=== PATIENT | male | born 1950 | race Caucasian/White ===

== ENCOUNTER 2023-12-18 18:50 | Inpatient (IN) | payer OTHER, MEDICARE ==
[~2023-12-18] VITALS: Ht 172.7 cm; Wt 81.9 kg
[2023-12-18] MEDS: pantoprazole 40 MG vial IV ONE (19:43)
[2023-12-18 19:44] LABS: BASOPHILS % (AUTO) 0.8 % (0-1); EOSINOPHILS # (AUTO) 0.2 X10'3 (0-0.9); EOSINOPHILS % (AUTO) 2.9 % (0-6); HEMATOCRIT 24.7 % (42.0-52.0); LYMPHOCYTES # (AUTO) 1.3 X10'3 (1.1-4.8); LYMPHOCYTES % (AUTO) 22.9 % (21-51); MEAN CORPUSCULAR HEMOGLOBIN 28.9 PG (27.0-31.0); MEAN CORPUSCULAR HGB CONC 32.4 g/dL (33.0-36.5); MEAN PLATELET VOLUME 8.4 FL (7.4-10.4); MONOCYTES # (AUTO) 0.5 X10'3 (0-0.9); MONOCYTES % (AUTO) 9.3 % (2-12); NEUTROPHILS # (AUTO) 3.8 X10'3 (1.8-7.7); NEUTROPHILS % (AUTO) 64.1 % (42-75); PLATELET COUNT 285 X10'3 (140-440); RED BLOOD COUNT 2.78 X10'6 (4.70-6.10); RED CELL DISTRIBUTION WIDTH 17.6 % (11.5-14.5); WHITE BLOOD COUNT 5.9 X10'3 (4.5-11.0)
[2023-12-18] MEDS ORDERED: ROPI2TAB29 PO (19:51)
[2023-12-18 19:53] LABS: ALBUMIN 2.3 G/DL (3.4-5.0); ANION GAP 8 (8-16); BLOOD UREA NITROGEN 37 MG/DL (7-18); BUN/CREATININE RATIO 63.8 (10.0-20.0); CALCIUM 8.3 MG/DL (8.5-10.1); CHLORIDE 110 MMOL/L (99-107); CREATININE 0.58 MG/DL (0.60-1.10); GLUCOSE 94 MG/DL (70-104); LIPASE 41 U/L (16-77); MAGNESIUM 1.9 MG/DL (1.5-2.4); POTASSIUM 3.8 MMOL/L (3.5-5.1); SODIUM 143 MMOL/L (135-145); TOTAL CARBON DIOXIDE 25.3 MMOL/L (24-32); eCRCL 110 ML/MIN; eGFR > 90 ML/MIN
[2023-12-18 19:56] LABS: APTT 23 SECONDS (22-32); INR 1.1 INR; PROTHROMBIN TIME 11.4 SECONDS (9.0-12.0)
[2023-12-18] MEDS ORDERED: magnesium hydroxide 30ml (MOM) UD suspension PO PRN (21:20)
[2023-12-18] MEDS ORDERED: acetaminophen 325mg tablet PO PRN (21:20)
[2023-12-18] MEDS ORDERED: potassium Cl 40MEQ/1/2NS 520ml 520 ML IV PRN (21:20)
[2023-12-18] MEDS: normal saline 1000ml 1,000 ML IV SCH (21:20)
[2023-12-18] MEDS ORDERED: mag hydrox/Alum hydrox/simeth 30ml oral suspension PO PRN (21:20)
[2023-12-18] MEDS ORDERED: potassium Cl 20 mEq SR tablet PO PRN (21:20)
[2023-12-18] MEDS ORDERED: magnesium sulf-water 2g/50mL 50 ML IV PRN (21:20)
[2023-12-18] MEDS ORDERED: ondansetron/PF 4mg/2ml inj IV PRN (21:20)
[2023-12-18] MEDS ORDERED: magnesium sulf-water 4G/100mL 100 ML IV PRN (21:20)
[2023-12-18] MEDS ORDERED: magnesium Cl slow-release 64mg tablet PO PRN (21:20)
[2023-12-18] MEDS: enoxaparin 40mg/0.4ml syringe SUBCUT SCH (21:35)
[2023-12-18 21:45] LABS: HEMOGLOBIN A1C 5.4 % (4.5-6.2)
[2023-12-18] MEDS: HYDROmorphone inj. 0.5 MG/0.5 ML DISP.SYRIN IV PRN (21:47)
[2023-12-18 21:49] LABS: % IRON SATURATION 37 % (11-46); IRON 56 UG/DL (53-167); TOTAL IRON BINDING CAPACITY 150 UG/DL (259-388)
[2023-12-18 21:59] LABS: D-DIMER 1.36 MG/L FEU (0-0.50)
[2023-12-18 22:01] LABS: FERRITIN 251 NG/ML (26-388); PRO BRAIN NATRIURETIC PEPTIDE 985 PG/ML (0-125)
[2023-12-18] MEDS: bisacodyl 10mg suppository rectal RC STA (22:08)
[2023-12-18] MEDS: HEPARIN DRIP DVT/PE -**PHARMACIST TO DOSE IV ONE (22:20)
[2023-12-18] MEDS: dextrose 5%-1/2 normal saline 1,000 ML IV ONE (22:31)
[2023-12-18] MEDS: pantoprazole 40MG/NS 100ML BAG 100 ML IV SCH (22:31)
[2023-12-18 23:45] LABS: BASOPHILS # (AUTO) 0.1 X10'3 (0-0.2); EOSINOPHILS # (AUTO) 0.2 X10'3 (0-0.9); EOSINOPHILS % (AUTO) 4.6 % (0-6); HEMOGLOBIN 7.6 g/dl (14.0-17.9); LYMPHOCYTES # (AUTO) 1.3 X10'3 (1.1-4.8); LYMPHOCYTES % (AUTO) 25.1 % (21-51); MEAN CORPUSCULAR HEMOGLOBIN 29.2 PG (27.0-31.0); MEAN CORPUSCULAR HGB CONC 33.1 g/dL (33.0-36.5); MEAN CORPUSCULAR VOLUME 88.2 FL (78-98); MEAN PLATELET VOLUME 8.2 FL (7.4-10.4); MONOCYTES # (AUTO) 0.5 X10'3 (0-0.9); MONOCYTES % (AUTO) 9.7 % (2-12); NEUTROPHILS # (AUTO) 3.1 X10'3 (1.8-7.7); NEUTROPHILS % (AUTO) 59.6 % (42-75); PLATELET COUNT 272 X10'3 (140-440); RED CELL DISTRIBUTION WIDTH 17.4 % (11.5-14.5); WHITE BLOOD COUNT 5.3 X10'3 (4.5-11.0)
[2023-12-18] MEDS: MESSAGE TO NURSING IV ONE (23:51)
[2023-12-18] MEDS: COMMUNICATION ORDER 1 EA MISC MC ONE (23:51)
[2023-12-18 23:56] LABS: APTT 25 SECONDS (22-32); INR 1.1 INR; PROTHROMBIN TIME 11.6 SECONDS (9.0-12.0)
[2023-12-18] MEDS: heparin 25,000 UNIT/250ml bag 250 ML IV PRN (23:56)
[2023-12-19] MEDS: K and/or MAG REPLACEMENT MC SCH (03:00)
[2023-12-19] MEDS: docusate sod 100mg capsule PO SCH (08:00)
[2023-12-19 08:28] LABS: BASOPHILS # (AUTO) 0.1 X10'3 (0-0.2); BASOPHILS % (AUTO) 1.1 % (0-1); EOSINOPHILS # (AUTO) 0.3 X10'3 (0-0.9); EOSINOPHILS % (AUTO) 5.5 % (0-6); HEMATOCRIT 22.5 % (42.0-52.0); HEMOGLOBIN 7.3 g/dl (14.0-17.9); LYMPHOCYTES % (AUTO) 21.1 % (21-51); MEAN CORPUSCULAR HEMOGLOBIN 28.9 PG (27.0-31.0); MEAN CORPUSCULAR HGB CONC 32.5 g/dL (33.0-36.5); MEAN CORPUSCULAR VOLUME 88.9 FL (78-98); MEAN PLATELET VOLUME 8.5 FL (7.4-10.4); MONOCYTES # (AUTO) 0.4 X10'3 (0-0.9); MONOCYTES % (AUTO) 7.9 % (2-12); NEUTROPHILS % (AUTO) 64.4 % (42-75); PLATELET COUNT 250 X10'3 (140-440); RED BLOOD COUNT 2.53 X10'6 (4.70-6.10); RED CELL DISTRIBUTION WIDTH 17.5 % (11.5-14.5); WHITE BLOOD COUNT 4.6 X10'3 (4.5-11.0)
[2023-12-19 09:15] LABS: ALANINE AMINOTRANSFERASE 34 U/L (12-78); ALBUMIN 2.2 G/DL (3.4-5.0); ALBUMIN/GLOBULIN RATIO 0.8 (1.1-1.5); ALKALINE PHOSPHATASE 259 IU/L (46-116); ANION GAP 6 (8-16); ASPARTATE AMINO TRANSFERASE 17 U/L (10-37); BILIRUBIN,TOTAL 0.3 MG/DL (0.1-1.0); BLOOD UREA NITROGEN 25 MG/DL (7-18); BUN/CREATININE RATIO 48.1 (10.0-20.0); CALCIUM 7.9 MG/DL (8.5-10.1); CHLORIDE 108 MMOL/L (99-107); CHOL/HDL RATIO 2.9 (0.00-4.99); CHOLESTEROL 92 MG/DL (0-200); CREATININE 0.52 MG/DL (0.60-1.10); GLUCOSE 109 MG/DL (70-104); HDL CHOLESTEROL 32 MG/DL (35-60); LDL CHOLESTEROL 45 MG/DL (50-100); MAGNESIUM 1.8 MG/DL (1.5-2.4); POTASSIUM 3.2 MMOL/L (3.5-5.1); SODIUM 138 MMOL/L (135-145); TOTAL CARBON DIOXIDE 23.9 MMOL/L (24-32); TRIGLYCERIDES 124 MG/DL (20-135); eCRCL 122 ML/MIN; eGFR > 90 ML/MIN
[2023-12-19] MEDS: iron sucrose complex injection 200 MG in normal saline 100ml IV soln 100 ML IV SCH (11:56)
[2023-12-19] MEDS: heparin 10,000 units/1 ML INJ IV PRN (13:52)
[2023-12-19] MEDS: MESSAGE TO NURSING IV ONE ×2 (14:02→21:05)
[2023-12-19] MEDS: potassium Cl 20 mEq SR tablet PO PRN (14:52)
[2023-12-19 15:13] LABS: OCCULT BLOOD STOOL POSITIVE (Neg)
[2023-12-19 16:08] VITALS: BP 103/65; PULSE 86; RESP 18; TEMP 97.8; O2SAT 97
[2023-12-19 18:34] VITALS: RESP 17; O2SAT 97
[2023-12-19 19:00] VITALS: BP 113/59; PULSE 95; RESP 18; TEMP 97.8; O2SAT 100
[2023-12-19 19:18] VITALS: BP 113/59; PULSE 95; RESP 18; TEMP 97.8; O2SAT 100
[2023-12-19] MEDS ORDERED: ASCO-134 PO (19:44)
[2023-12-19] MEDS ORDERED: ASPI81TA52 PO (19:45)
[2023-12-19] MEDS ORDERED: ATOR-429 PO (19:46)
[2023-12-19] MEDS ORDERED: FENT1PAT7 TD (19:49)
[2023-12-19 20:00] VITALS: RESP 18; O2SAT 97
[2023-12-19] MEDS ORDERED: PREG150C PO (20:03)
[2023-12-19] MEDS ORDERED: SENN-360 PO (20:06)
[2023-12-19] MEDS ORDERED: FLO0.4C PO (20:07)
[2023-12-19] MEDS ORDERED: VITA1CAP PO (20:09)
[2023-12-19] MEDS ORDERED: POLY119P2 PO (20:11)
[2023-12-19] MEDS ORDERED: RIVA10TA PO (20:41)
[2023-12-19 22:00] VITALS: BP 142/71; PULSE 91; RESP 18; TEMP 97.2; O2SAT 97
[2023-12-19] MEDS ORDERED: ROPI0.2544 PO (23:28)
[2023-12-19] MEDS ORDERED: METO-539 PO (23:31)
[2023-12-19] MEDS ORDERED: METH-798 PO (23:32)
[2023-12-19] MEDS ORDERED: LACT10PA5 PO (23:33)
[2023-12-19] MEDS ORDERED: CRAN450T4 PO (23:34)
[2023-12-19] MEDS ORDERED: BISA-155 PO (23:36)
[2023-12-19] MEDS ORDERED: ACET-890 PO (23:39)
[2023-12-19] MEDS ORDERED: DIPH25TA25 PO (23:41)
[2023-12-19] MEDS ORDERED: DULO-31 PO (23:42)
[2023-12-19] MEDS ORDERED: FERR325T28 PO (23:43)
[2023-12-19] MEDS ORDERED: FOLI0.4T6 PO (23:45)
[2023-12-19] MEDS ORDERED: GUAI600T45 PO (23:46)
[2023-12-19] MEDS ORDERED: HYDR8TAB16 PO (23:51)
[2023-12-19] MEDS ORDERED: PANT-47 PO (23:53)
[2023-12-19] MEDS ORDERED: GLYC-147 RC (23:54)
[2023-12-19] MEDS ORDERED: ALBU8HFA INH (23:57)
[2023-12-20] VITALS (23 sets, daily range): BP systolic 102–141; BP diastolic 53–96; PULSE 65–93; RESP 10–19; TEMP 97.3–98.6; O2SAT 95–100
[2023-12-20] MEDS ORDERED: bisacodyl 5mg tablet.DR PO SCH
[2023-12-20] MEDS ORDERED: lactulose 20gm/30ml cup PO PRN (01:40)
[2023-12-20] MEDS: vitamin B comp w/Vit. C tab 1 TAB TABLET PO SCH (07:56)
[2023-12-20] MEDS: atorvastatin 20mg tablet PO SCH (07:56)
[2023-12-20] MEDS: tamsulosin 0.4mg capsule PO SCH (07:57)
[2023-12-20] MEDS: pregabalin 75mg capsule PO SCH (07:57)
[2023-12-20] MEDS: duloxetine 30mg CAPSULE.DR PO SCH (07:58)
[2023-12-20] MEDS: ROPINIRole 1mg tablet PO SCH (07:58)
[2023-12-20] MEDS: folic acid 0.4mg tablet PO SCH (07:58)
[2023-12-20] MEDS: metoprolol succinate 25mg (24-HOUR) SR. Tablet PO SCH (07:58)
[2023-12-20] MEDS: ferrous sulfate 325mg tablet PO SCH (07:58)
[2023-12-20] MEDS: ascorbic acid 500mg tablet PO SCH (07:59)
[2023-12-20] MEDS: pantoprazole 40mg Tablet.DR PO SCH (07:59)
[2023-12-20] MEDS: ROPINIRole 0.25mg tablet PO SCH (07:59)
[2023-12-20] MEDS: polyethylene glycol 3350 17gm powd pack PO SCH (08:00)
[2023-12-20] MEDS ORDERED: METHOCARBAMOL PO SCH (08:00)
[2023-12-20] MEDS: sennosides 8.6mg tablet PO SCH (08:00)
[2023-12-20] MEDS ORDERED: non-formulary drug (Cranberry Extract (Cranberry) 2 TAB) PO SCH (08:00)
[2023-12-20] MEDS ORDERED: rivaroxaban 10mg tablet PO SCH (08:00)
[2023-12-20] MEDS: HYDROmorphone/PF 0.2 MG/ML SYRINGE IV PRN (08:01)
[2023-12-20 09:59] LABS: BASOPHILS % (AUTO) 0.9 % (0-1); EOSINOPHILS # (AUTO) 0.2 X10'3 (0-0.9); EOSINOPHILS % (AUTO) 3.3 % (0-6); LYMPHOCYTES # (AUTO) 0.6 X10'3 (1.1-4.8); LYMPHOCYTES % (AUTO) 13.1 % (21-51); MEAN CORPUSCULAR HEMOGLOBIN 29.4 PG (27.0-31.0); MEAN CORPUSCULAR HGB CONC 33.1 g/dL (33.0-36.5); MEAN CORPUSCULAR VOLUME 88.9 FL (78-98); MEAN PLATELET VOLUME 8.2 FL (7.4-10.4); MONOCYTES # (AUTO) 0.3 X10'3 (0-0.9); MONOCYTES % (AUTO) 5.9 % (2-12); NEUTROPHILS # (AUTO) 3.5 X10'3 (1.8-7.7); NEUTROPHILS % (AUTO) 76.8 % (42-75); PLATELET COUNT 244 X10'3 (140-440); RED BLOOD COUNT 2.36 X10'6 (4.70-6.10); RED CELL DISTRIBUTION WIDTH 17.3 % (11.5-14.5); WHITE BLOOD COUNT 4.6 X10'3 (4.5-11.0)
[2023-12-20 10:15] LABS: ALBUMIN/GLOBULIN RATIO 0.7 (1.1-1.5); ALKALINE PHOSPHATASE 203 IU/L (46-116); BLOOD UREA NITROGEN 8 MG/DL (7-18); BUN/CREATININE RATIO 19.5 (10.0-20.0); CALCIUM 7.3 MG/DL (8.5-10.1); CHLORIDE 114 MMOL/L (99-107); CREATININE 0.41 MG/DL (0.60-1.10); GLUCOSE 103 MG/DL (70-104); MAGNESIUM 1.5 MG/DL (1.5-2.4); TOTAL CARBON DIOXIDE 22.3 MMOL/L (24-32); TOTAL PROTEIN 4.7 G/DL (6.4-8.2); eCRCL 155 ML/MIN; eGFR > 90 ML/MIN
[2023-12-20 10:30] LABS: ANION GAP 8 (8-16); BILIRUBIN,TOTAL 0.4 MG/DL (0.1-1.0); SODIUM 144 MMOL/L (135-145)
[2023-12-20 10:42] LABS: ALANINE AMINOTRANSFERASE 17 U/L (12-78); ASPARTATE AMINO TRANSFERASE 30 U/L (10-37)
[2023-12-20 10:45] LABS: POTASSIUM 3.1 MMOL/L (3.5-5.1)
[2023-12-20] MEDS: pantoprazole 40MG/NS 100ML BAG 100 ML IV SCH (12:17)
[2023-12-20 12:27] LABS: HEMOGLOBIN 7.1 g/dl (14.0-17.9); MEAN CORPUSCULAR HEMOGLOBIN 29.5 PG (27.0-31.0); MEAN CORPUSCULAR HGB CONC 33.1 g/dL (33.0-36.5); MEAN PLATELET VOLUME 8.2 FL (7.4-10.4); PLATELET COUNT 272 X10'3 (140-440); RED BLOOD COUNT 2.42 X10'6 (4.70-6.10); RED CELL DISTRIBUTION WIDTH 17.8 % (11.5-14.5); WHITE BLOOD COUNT 4.8 X10'3 (4.5-11.0)
[2023-12-20 12:37] LABS: HEMATOCRIT 21.5 % (42.0-52.0)
[2023-12-20] MEDS ORDERED: LIDOcaine 2% Viscous 15ml cup ONE (13:37)
[2023-12-20] MEDS ORDERED: MIDAZolam 1 MG/ML 5ML VIAL ONE (14:04)
[2023-12-20] MEDS ORDERED: fentaNYL/PF 50MCG/1 ML 2ML syringe ONE (14:04)
[2023-12-20] MEDS ORDERED: simethicone 40mg/0.6ml oral drops 30ml ONE (14:46)
[2023-12-20] MEDS ORDERED: hydrALAZINE 20mg/ml inj. IV PRN (18:45)
[2023-12-21 02:00] VITALS: BP 128/62; PULSE 68; RESP 15; TEMP 97.7; O2SAT 96
[2023-12-21 07:00] VITALS: BP 127/66; PULSE 78; RESP 16; TEMP 98.4; O2SAT 97
[2023-12-21 08:21] LABS: BASOPHILS # (AUTO) 0.1 X10'3 (0-0.2); BASOPHILS % (AUTO) 1.2 % (0-1); EOSINOPHILS # (AUTO) 0.3 X10'3 (0-0.9); EOSINOPHILS % (AUTO) 6.8 % (0-6); HEMOGLOBIN 8.5 g/dl (14.0-17.9); LYMPHOCYTES # (AUTO) 0.8 X10'3 (1.1-4.8); LYMPHOCYTES % (AUTO) 17.4 % (21-51); MEAN CORPUSCULAR HEMOGLOBIN 29.4 PG (27.0-31.0); MEAN CORPUSCULAR HGB CONC 32.8 g/dL (33.0-36.5); MEAN CORPUSCULAR VOLUME 89.7 FL (78-98); MEAN PLATELET VOLUME 8.1 FL (7.4-10.4); MONOCYTES # (AUTO) 0.4 X10'3 (0-0.9); MONOCYTES % (AUTO) 8.8 % (2-12); NEUTROPHILS # (AUTO) 2.9 X10'3 (1.8-7.7); NEUTROPHILS % (AUTO) 65.8 % (42-75); PLATELET COUNT 264 X10'3 (140-440); RED BLOOD COUNT 2.89 X10'6 (4.70-6.10); RED CELL DISTRIBUTION WIDTH 17.4 % (11.5-14.5); WHITE BLOOD COUNT 4.4 X10'3 (4.5-11.0)
[2023-12-21 08:26] LABS: ALANINE AMINOTRANSFERASE 25 U/L (12-78); ALBUMIN 2.4 G/DL (3.4-5.0); ALBUMIN/GLOBULIN RATIO 0.9 (1.1-1.5); ALKALINE PHOSPHATASE 203 IU/L (46-116); ANION GAP 6 (8-16); ASPARTATE AMINO TRANSFERASE 18 U/L (10-37); BILIRUBIN,TOTAL 0.6 MG/DL (0.1-1.0); BLOOD UREA NITROGEN 5 MG/DL (7-18); BUN/CREATININE RATIO 10.2 (10.0-20.0); CALCIUM 8.4 MG/DL (8.5-10.1); CHLORIDE 112 MMOL/L (99-107); CREATININE 0.49 MG/DL (0.60-1.10); GLUCOSE 89 MG/DL (70-104); MAGNESIUM 1.8 MG/DL (1.5-2.4); POTASSIUM 3.5 MMOL/L (3.5-5.1); SODIUM 143 MMOL/L (135-145); TOTAL CARBON DIOXIDE 24.9 MMOL/L (24-32); TOTAL PROTEIN 5.2 G/DL (6.4-8.2); eCRCL 130 ML/MIN; eGFR > 90 ML/MIN
[2023-12-21 11:00] VITALS: BP 110/57; PULSE 69; RESP 16; TEMP 98.3; O2SAT 99
[2023-12-21 16:00] VITALS: BP 101/54; PULSE 68; RESP 16; TEMP 97.3; O2SAT 98
[2023-12-21 21:30] VITALS: BP 123/64; PULSE 75; RESP 18; TEMP 97.4; O2SAT 99
[2023-12-21 22:20] LABS: OCCULT BLOOD STOOL POSITIVE (Neg)
[2023-12-22] VITALS (7 sets, daily range): BP systolic 102–121; BP diastolic 53–64; PULSE 66–76; RESP 11–18; TEMP 96.7–98.3; O2SAT 97–100
[2023-12-22 06:40] LABS: BASOPHILS % (AUTO) 0.9 % (0-1); EOSINOPHILS # (AUTO) 0.3 X10'3 (0-0.9); EOSINOPHILS % (AUTO) 7.4 % (0-6); HEMATOCRIT 26.8 % (42.0-52.0); HEMOGLOBIN 8.9 g/dl (14.0-17.9); LYMPHOCYTES # (AUTO) 0.8 X10'3 (1.1-4.8); LYMPHOCYTES % (AUTO) 18.3 % (21-51); MEAN CORPUSCULAR HEMOGLOBIN 30.3 PG (27.0-31.0); MEAN CORPUSCULAR HGB CONC 33.1 g/dL (33.0-36.5); MEAN CORPUSCULAR VOLUME 91.5 FL (78-98); MEAN PLATELET VOLUME 8.3 FL (7.4-10.4); MONOCYTES # (AUTO) 0.4 X10'3 (0-0.9); MONOCYTES % (AUTO) 8.7 % (2-12); NEUTROPHILS # (AUTO) 2.8 X10'3 (1.8-7.7); NEUTROPHILS % (AUTO) 64.7 % (42-75); PLATELET COUNT 254 X10'3 (140-440); RED BLOOD COUNT 2.92 X10'6 (4.70-6.10); RED CELL DISTRIBUTION WIDTH 17.1 % (11.5-14.5); WHITE BLOOD COUNT 4.4 X10'3 (4.5-11.0)
[2023-12-22 06:53] LABS: ALANINE AMINOTRANSFERASE 23 U/L (12-78); ALBUMIN 2.4 G/DL (3.4-5.0); ALBUMIN/GLOBULIN RATIO 0.9 (1.1-1.5); ALKALINE PHOSPHATASE 209 IU/L (46-116); ANION GAP 5 (8-16); ASPARTATE AMINO TRANSFERASE 22 U/L (10-37); BILIRUBIN,TOTAL 0.7 MG/DL (0.1-1.0); BLOOD UREA NITROGEN 5 MG/DL (7-18); CALCIUM 8.3 MG/DL (8.5-10.1); CHLORIDE 111 MMOL/L (99-107); GLUCOSE 95 MG/DL (70-104); MAGNESIUM 1.8 MG/DL (1.5-2.4); POTASSIUM 3.3 MMOL/L (3.5-5.1); SODIUM 142 MMOL/L (135-145); TOTAL CARBON DIOXIDE 25.7 MMOL/L (24-32); TOTAL PROTEIN 5.1 G/DL (6.4-8.2); eCRCL 127 ML/MIN; eGFR > 90 ML/MIN
[2023-12-22] MEDS ORDERED: potassium Cl 20 mEq SR tablet PO PRN (16:45)
[2023-12-22] MEDS ORDERED: magnesium Cl slow-release 64mg tablet PO PRN (16:45)
[2023-12-22] MEDS ORDERED: potassium Cl 40MEQ/1/2NS 520ml 520 ML IV PRN (16:45)
[2023-12-22] MEDS ORDERED: magnesium sulf-water 2g/50mL 50 ML IV PRN (16:45)
[2023-12-22] MEDS ORDERED: magnesium sulf-water 4G/100mL 100 ML IV PRN (16:45)
[2023-12-22] MEDS: diphenhydrAMINE 25mg capsule PO PRN (23:48)
[2023-12-23] VITALS (8 sets, daily range): BP systolic 94–121; BP diastolic 49–61; PULSE 63–72; RESP 13–22; TEMP 96.7–98.1; O2SAT 96–99
[2023-12-23 07:03] LABS: BASOPHILS % (AUTO) 0.6 % (0-1); EOSINOPHILS # (AUTO) 0.3 X10'3 (0-0.9); EOSINOPHILS % (AUTO) 5.7 % (0-6); HEMATOCRIT 27.9 % (42.0-52.0); HEMOGLOBIN 9.1 g/dl (14.0-17.9); LYMPHOCYTES # (AUTO) 0.7 X10'3 (1.1-4.8); LYMPHOCYTES % (AUTO) 11.6 % (21-51); MEAN CORPUSCULAR HEMOGLOBIN 30.2 PG (27.0-31.0); MEAN CORPUSCULAR HGB CONC 32.8 g/dL (33.0-36.5); MEAN CORPUSCULAR VOLUME 92.1 FL (78-98); MEAN PLATELET VOLUME 8.5 FL (7.4-10.4); MONOCYTES # (AUTO) 0.4 X10'3 (0-0.9); MONOCYTES % (AUTO) 7.6 % (2-12); NEUTROPHILS # (AUTO) 4.3 X10'3 (1.8-7.7); NEUTROPHILS % (AUTO) 74.5 % (42-75); PLATELET COUNT 251 X10'3 (140-440); RED BLOOD COUNT 3.03 X10'6 (4.70-6.10); RED CELL DISTRIBUTION WIDTH 18.5 % (11.5-14.5); WHITE BLOOD COUNT 5.8 X10'3 (4.5-11.0)
[2023-12-23 07:36] LABS: ALANINE AMINOTRANSFERASE 48 U/L (12-78); ALBUMIN 2.3 G/DL (3.4-5.0); ALBUMIN/GLOBULIN RATIO 0.9 (1.1-1.5); ALKALINE PHOSPHATASE 487 IU/L (46-116); ANION GAP 7 (8-16); ASPARTATE AMINO TRANSFERASE 35 U/L (10-37); BILIRUBIN,TOTAL 0.5 MG/DL (0.1-1.0); BLOOD UREA NITROGEN 7 MG/DL (7-18); BUN/CREATININE RATIO 12.3 (10.0-20.0); CHLORIDE 110 MMOL/L (99-107); CREATININE 0.57 MG/DL (0.60-1.10); GLUCOSE 93 MG/DL (70-104); POTASSIUM 3.2 MMOL/L (3.5-5.1); SODIUM 142 MMOL/L (135-145); TOTAL CARBON DIOXIDE 25.4 MMOL/L (24-32); eCRCL 112 ML/MIN; eGFR > 90 ML/MIN
[2023-12-23] MEDS: potassium Cl 20 mEq SR tablet PO PRN (09:24)
[2023-12-24 02:00] VITALS: BP 98/58; PULSE 66; RESP 18; TEMP 97.2; O2SAT 96
[2023-12-24 06:00] VITALS: BP 123/65; PULSE 63; RESP 12; TEMP 98.2; O2SAT 98
[2023-12-24 08:00] VITALS: RESP 12; O2SAT 98
[2023-12-24 09:23] VITALS: RESP 13
== END 2023-12-24 10:30 | DRG 368 ==
LOC: ER 18:51 → ED HOLD 21:23 → EDBEDREQ 12-19 09:52 → PCU 3S 12-19 15:10
PROVIDERS: ADMIT Student in an Organized Health Care Education/Training Program; ATTEND Family Medicine
PROC: 0DJ08ZZ Inspection of Upper Intestinal Tract, Via Natural or Artificial Opening Endoscopic (ICD-10-PCS; principal; 2023-12-20)
PROC: 30233N1 Transfusion of Nonautologous Red Blood Cells into Peripheral Vein, Percutaneous Approach (ICD-10-PCS; 2023-12-20)
DX: K21.01 Gastro-esophageal reflux disease with esophagitis, with bleeding (principal); R57.1 Hypovolemic shock; N39.0 Urinary tract infection, site not specified; I82.452 Acute embolism and thrombosis of left peroneal vein; D62 Acute posthemorrhagic anemia; G61.0 Guillain-Barre syndrome; I48.91 Unspecified atrial fibrillation; I11.0 Hypertensive heart disease with heart failure; I50.9 Heart failure, unspecified; F32.A Depression, unspecified; E78.00 Pure hypercholesterolemia, unspecified; R56.9 Unspecified convulsions; G89.29 Other chronic pain; G25.81 Restless legs syndrome; K44.9 Diaphragmatic hernia without obstruction or gangrene; E87.6 Hypokalemia; L89.159 Pressure ulcer of sacral region, unspecified stage; I73.9 Peripheral vascular disease, unspecified; E78.5 Hyperlipidemia, unspecified; Z87.891 Personal history of nicotine dependence; Z99.3 Dependence on wheelchair; Z85.46 Personal history of malignant neoplasm of prostate; Z92.21 Personal history of antineoplastic chemotherapy
CPT/HCPCS: 36415; 36430; 43235; 71045; 80048; 80053; 80061; 82272; 82728; 83036; 83540; 83550; 83605; 83690; 83735; 83880; 85025; 85027; 85379; 85610; 85730; 86885; 86900; 86901; 86920; 87040; 87081; 93306; 93925; 93970; 96365; 97110; 97161; 97530; 99152; 99291; A4314; A4620; A5200; A6212; A6213; A6250; A6258; A6449; G0378; J1171; J1644; J1756; J2250; J2470; J3010; J7030; J7040; P9016; Q0163